=== PATIENT | male | born 2000 | race Caucasian/White ===

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

== ENCOUNTER 2020-11-11 13:45 | Emergency (ER) | payer OTHER ==
[~2020-11-11 13:45] MED LIST: Albuterol/Ipratropium 3.0-0.5 MG/3 ML Neb Soln ONE
--- NOTE | 2020-11-11 15:16 | CR ---
INDICATION: Cough. Dyspnea. History of asthma. TECHNIQUE: PA and lateral chest x-ray 3 views. COMPARISON: Chest x-ray 08/21/2018. FINDINGS: Lungs are hyperinflated with flattening of hemidiaphragms on the lateral view. No infiltrate or consolidation either lung. Heart size within normal limits. Relative paucity of bronchovascular markings along the peripheral aspect of both lungs and in the lung apices. Chest otherwise negative. Dictated by Jeremias Clarke MD @ 11/11/2020 3:14:[address] Jeremias Clarke @ Nov 11 2020 3:14PM
--- NOTE | 2020-11-11 15:54 | EDM.PDOC ---
ED HPI GENERAL MEDICAL PROBLEM - General Chief Complaint: Asthma Stated Complaint: BREATHING PROBLEMS Time Seen by Provider: 11/11/20 13:56 - History of Present Illness INITIAL COMMENTS - FREE TEXT/NARRATIVE: CHIEF COMPLAINT(S): Possible asthma attack HISTORY OF PRESENT ILLNESS: This is a 20-year-old man with a reported past medical history of asthma who comes to the emergency department with a possible asthma attack. Per mother the patient started to have an asthma attack and fell to the ground and was drooling and having regular movements. The patient currently states that he feels short of breath. He denies any chest pain, abdominal pain, nausea or vomiting. He states that he does not have an inhaler. Otherwise history is limited secondary to patient hyperventilating REVIEW OF SYSTEMS: Constitutional: Denies fever, chills. Eyes: Denies eye pain Ears, Nose, Mouth, & Throat: Denies earache Cardiovascular: Denies chest pain Respiratory: Positive for shortness of breath gastrointestinal: Denies Nausea, vomiting, diarrhea, hematochezia. Genitourinary: Denies hematuria Skin:Denies a rash MSK: Denies joint pain Neurological: Denies blurred vision Psychiatric: Denies depression PAST MEDICAL HISTORY: As per history of present illness and as reviewed below otherwise noncontributory. SURGICAL HISTORY: As per history of present illness and as reviewed below otherwise noncontributory. SOCIAL HISTORY: As per history of present illness and as reviewed below otherwise noncontributory. FAMILY HISTORY: As per history of present illness and as reviewed below otherwise noncontributory. EXAMINATION OF ORGAN SYSTEMS/BODY AREAS: Constitutional: Blood pressure was 139/70, heart rate 149, respiratory rate 42 with oxygen saturation of 100% on room air. Temperature 36.6 General: Young man who is hyperventilating and has flushed cheeks Psychiatric: Appears anxious and mildly uncooperative Eyes: No scleral icterus or conjunctival erythema ENMT: Moist mucous membranes. No pharyngeal erythema Cardiovascular: Tachycardic but regular no gallops, murmurs, or rubs. Bilateral upper extremity pulses symmetric and intact. No peripheral edema. No JVD. Respiratory: Lungs clear to auscultation bilaterally. No wheezes, rales, or rhonchi. No prolonged expiratory phase. Tachypneic. Gastrointestinal: Soft, non-tender, non-distended. Normoactive bowel sounds Genitourinary: No suprapubic tenderness Musculoskeletal: Normal range of motion. Skin: No lesions or abrasions. Neurological: Alert, GCS 15 MEDICAL DECISION MAKING AND COURSE IN THE ED WITH INTERPRETATION/REVIEW OF DIAGNOSTIC STUDIES: This is a 20-year-old man with a reported past medical history of asthma who comes to the emergency department with a possible asthma attack who is tachycardic and tachypneic with no prolonged expiratory phase, wheezing with clear lung sounds. At this time the patient was already receiving a DuoNeb treatment. We did obtain an EKG which was unremarkable. We will obtain a chest x-ray. I did review the patient's chart and he has had a pulmonary function test in the past which were not indicative of any obstructive process. I am uncertain as if this is asthma at all. We will reevaluate. The radiological images were viewed by myself along with reading the report from the radiologist. Chest x-ray does not reveal any acute cardiopulmonary process. The patient's vitals returned to normal and lung sounds remain clear. I did discuss him at this time that his pulmonary function tests were not indicative of an obstructive process however given his possible history of asthma I enco uraged him to use his albuterol as needed at home. I discussed that there could be some underlying anxiety/panic disorder. Encouraged him to follow-up with his primary care physician. He was amenable to discharge and had no further questions. DISPOSITION: The patient was discharged home in stable condition. The patient will follow up with primary care physician in 3 to 5 days CONDITION: Fair PROCEDURES: None FINAL IMPRESSION(S)/DIAGNOSES: 1. Acute dyspnea likely secondary to anxiety/panic attack Miles Magdaleno M.D. Lungs Pain Score (Numeric/FACES): 9 - Related Data Allergies Allergy/AdvReac Type Severity Reaction Status Date / Time cat dander Allergy Hives Verified 11/11/20 13:50 Home Meds: Home Meds Albuterol Sulfate [Albuterol Sulfate HFA] 2 puff INH Q4H PRN 11/11/20 [History] Past Medical History Respiratory History: Reports: Asthma Social & Family History - Family History Family Medical History: No Pertinent Family History ED ROS GENERAL - Review of Systems Review Of Systems: See Below ED EXAM, GENERAL - Physical Exam Exam: See Below Course - Vital Signs Last Recorded V/S: Last Vital Signs Temp 36.2 C 11/11/20 16:05 Pulse 69 11/11/20 16:05 Resp 15 11/11/20 16:05 BP 114/60 11/11/20 16:05 Pulse Ox 98 11/11/20 16:05 - Orders/Labs/Meds Meds: Medications Discontinued Medications Generic Name Dose Route Start Last Admin Trade Name Estela PRN Reason Stop Dose Admin Albuterol/Ipratropium 3 ml 11/11/20 13:45 Albuterol/Ipratropium 3.0-0.5 Mg/3 Ml Neb Soln .ROUTE 11/11/20 13:46 .STK-MED ONE Albuterol/Ipratropium 3 ml 11/11/20 16:09 11/11/20 16:11 Albuterol/Ipratropium 3.0-0.5 Mg/3 Ml Neb Soln NEB 11/11/20 16:10 3 ml ONETIME ONE Administration Departure - Departure Time of Disposition: 15:53 Disposition: Home, Self-Care 01 Condition: Fair Clinical Impression: Dyspnea, Anxiety - Discharge Information *PRESCRIPTION DRUG MONITORING PROGRAM REVIEWED*: No *COPY OF PRESCRIPTION DRUG MONITORING REPORT IN PATIENT MARITO: No Instructions: Shortness of Breath, Adult, [id number], Managing Anxiety, Adult Referrals: Aravind Mcgregor MD [Primary Care Provider] - Forms: ED Department Discharge Additional Instructions: You were evaluated today on an emergent basis. At this time we did give you treatment and your breathing did improve. Given that your lung sounds were clear I do not believe this was secondary to asthma. Your chest x-ray did not reveal any pneumonia. There could be underlying anxiety. I do recommend that you follow-up with your primary care physician in 3 to 5 days for reevaluation. Please use your albuterol as needed at home. Please return to the emergency department if you have worsening chest pain, shortness of breath or you are concerned. [facility] - [facility] [address] [place] [id number] [facility] [address] [place] [id number] The patient is informed of any results of their evaluation and diagnostic workup and all questions are answered. They are given discharge instructions and return precautions. The patient is stable for discharge. The patient states they understand and agree with the plan and that they will return if their symptoms get worse or if they have any new concerns. The following information is given to patients seen in the emergency department who are being discharged to home. This information is to outline your options for follow-up care. We provide all patients seen in our emergency department with a follow-up referral. The need for follow-up, as well as the timing and circumstances, are variable depending upon the specifics of your emergency department visit. If you don't have a primary care physician on staff, we will provide you with a referral. We always advise you to contact your personal physician following an emergency department visit to inform them of the circumstance of the visit and for follow-up with them and/or the need for any referrals to a consulting specialist. The emergency department will also refer you to a specialist when appropriate. This referral assures that you have the opportunity for follow-up care with a specialist. All of these measure are taken in an effort to provide you with optimal care, which includes your follow-up. Under all circumstances we always encourage you to contact your private physician who remains a resource for coordinating your care. When calling for follow-up care, please make the office aware that this follow-up is from your recent emergency room visit. If for any reason you are refused follow-up, please contact the [facility] Emergency Department at and asked to speak to the emergency department charge nurse. Sepsis Event Note (ED) - Evaluation Sepsis Screening Result: No Definite Risk
[2020-11-11] MEDS ORDERED: Albuterol/Ipratropium 3.0-0.5 MG/3 ML Neb Soln NEB ONE (16:09)
--- NOTE | 2020-11-12 07:09 | PCM.EKG ---
#1 Interpretation EKG Date: 11/11/20 Time: 13:53 Rhythm: NSR Rate (Beats/Min): 107 [place]: Normal P-Wave: Present QRS: Normal ST-T: Normal QT: Normal Comparison: No Change (08/21/18) EKG Interpretation Comments: Sinus tachycardia #2 Interpretation EKG Date: 11/11/20 Time: 15:41 Rhythm: NSR Rate (Beats/Min): 59 [place]: Normal P-Wave: Present QRS: Normal ST-T: Normal QT: Normal Comparison: No Change (today) EKG Interpretation Comments: Sinus Rhythm
== END 2020-11-11 16:11 | disposition home or self-care (01) ==
LOC: MW.ED 13:45
DX: R06.02 Shortness of breath (principal); F41.9 Anxiety disorder, unspecified; J45.909 Unspecified asthma, uncomplicated; Z91.09 Other allergy status, other than to drugs and biological substances
CPT/HCPCS: 71046; 71046-26; 93005; 93010; 99283; 99285-25; J7620-GY